=== PATIENT | male | born 1985 | race Two or more races ===

== ENCOUNTER 2020-01-30 02:05 | Emergency (ER) | payer SELFPAY ==
[~2020-01-30] VITALS: Ht 175.3 cm; Wt 68.0 kg
--- NOTE | 2020-01-30 02:11 | NUR ---
ED Nurse Note: Pt GRETA RA 28 [address] with [employer] present. PT is naked and standing in the street, pt appears to be on some substance. Pt is not answering questions, given 10mg Versed in the field.
--- NOTE | 2020-01-30 02:26 | Emergency Room Report ---
History of Present Illness General Chief Complaint: Behavioral Complaint Source: EMS, Law Enforcement (Jaxon Moran MD) Present Illness HPI Paramedics were called by [employer]. Apparently with the patient was running around naked in the street. He was babbling incoherently and fighting people trying to help him. Because of abnormal vital signs and his agitation paramedics gave the patient 10 mg of Versed IM. This led to his calming. The patient is unable to give coherent history at this time. He keeps on repeating in Japanese "the colors". 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 - [employer] family near Reviewed Nursing Documentation: PMH: Agreed; PSxH: Agreed (Jaxon Moran MD) Nursing Documentation-PMH Past Medical History Deferred: Patient Unconscious (Jaxon Moran MD) Review of Systems All Other Systems: limited (Jaxon Moran MD) Physical Exam Vital Signs Date Time Temp Pulse Resp B/P (MAP) Pulse Ox O2 Delivery O2 Flow Rate FiO2 01/30/20 02:03 98.1 126 18 116/89 (98) 97 Room Air Sp02 EP Interpretation: reviewed, normal General Appearance: well appearing, alert, non-toxic, other - slightly agitated Eyes: bilateral eye PERRL, bilateral eye EOMI, bilateral eye Scleral Injection ENT: moist mucus membranes Neck: full range of motion, supple Respiratory: chest non-tender, lungs clear, normal breath sounds Cardiovascular #1: no edema, tachycardia Cardiovascular #2: 2+ radial (L) Gastrointestinal: non tender, soft, decreased bowel sounds Genitourinary: normal inspection, other - uncircumcised Neurologic: alert Psychiatric: other - labile, not answer questions, perseveration talking about "colors" Skin: no rash, warm/dry (Jaxon Moran MD) Procedures Critical Care Time Critical Care Time Total Critical Care Time: 30 min bedside evaluation and treatment excludes procedures (EKG). Reason for critical care: psychosis/agitated delirium, restraints, repeat evaluations, sedation Possible complications: arrhythmias, metabolic acidosis, end organ damage, respiratory failure, harm to self and others. Interventions: restraints, sedation with multiple re-evaluations, hydration and treatment of renal dysfunction and tachycardia Course: Patient with bizarre behavior and agitated delirium. Initially sedated in field. Violent with staff and restraints and sedation indicated. Inadequate sedation. Repeat evaluations until improved mentation and cooperation. Renal failure and tachycardia treated with hydration. Repeat labs obtained. Signed out to Dr. Matamoros. Consultations: nursing staff, EMS, oncoming ERMD Performed by: Dr. Moran Tolerated well condition = serious but improved (Jaxon Moran MD) Medical Decision Making Medical: Substance Abuse Reaction to Intervention: No change Restraint Reassesment I, Jaxon Moran MD, have personally evaluated this patient. Laboratory tests have been reviewed and addressed accordingly. The patient is deemed to present a danger to themselves and/or others. This is based on the exam, history (provided by EMS and [employer]) and observed and reported behavior. Attempts for non-invasive measures have been considered and/or attempted, however, have been futile. It is in the best interest of the nursing staff, the patient, and others involved in this patient's care that behavioral restraints be applied. Patient evaluation reveals the following: see multiple re-evaluations leading to removal of restraints with adequate sedation (Jaxon Moran MD) Diagnostic Impression: Primary Impression: Acute psychosis Additional Impressions: Amphetamine abuse Renal failure Qualified Codes: N19 - Unspecified kidney failure Leukocytosis Qualified Codes: D72.828 - Other elevated white blood cell count ER Course Patient presents with suspected agitated delirium from the field after receiving 10 mg of Versed. Differential includes psychosis, substance abuse, electrolyte imbalance, exacerbation of underlying psychiatric disorder. Patient is tachycardic at this time and we need to exclude cardiac injury. Patient evaluated with EKG, chest x-ray and labs. Patient placed on cardiac monitor technician. Patient also given IV hydration. Patient agitated and attempting to get off the gurney and is unstable on his feet. He is fighting with staff. Several staff members needed to control the patient's behavior and restraints were indicated as he not responding to external stimuli or following requests and orders to lay back on the gurney and not try to injure us. Sedation and restraints indicated. 230 Patient trying to bite staff. Haldol repeated. 315 Labs significant for renal failure. CPK added. IV hydration continue. Potassium slightly low lactated Ringer's ordered Still shouting. Slightly more coherent. Haldol and ativan repeated. EKG finally performed. No longer tachycardic. He claims he is never had psychiatric diagnosis or medications. He refuses to say what drugs he has been using if any. Will repeat labs after LR and repeat eval. CK slightly elevated, but not in range for admission. Treated with LR and IV hydration. Signed out to Dr. Matamoros. Laboratory Tests Test 01/30/20 02:30 01/30/20 07:30 White Blood Count 16.2 K/UL (4.8-10.8) H 15.4 K/UL (4.8-10.8) H Red Blood Count 5.39 M/UL (4.70-6.10) 5.17 M/UL (4.70-6.10) Hemoglobin 16.4 G/DL (14.2-18.0) 15.8 G/DL (14.2-18.0) Hematocrit 50.0 % (42.0-52.0) 48.3 % (42.0-52.0) Mean Corpuscular Volume 93 FL (80-99) 93 FL (80-99) Mean Corpuscular Hemoglobin 30.3 PG (27.0-31.0) 30.5 PG (27.0-31.0) Mean Corpuscular Hemoglobin Concent 32.7 G/DL (32.0-36.0) 32.7 G/DL (32.0-36.0) Red Cell Distribution Width 12.6 % (11.6-14.8) 12.6 % (11.6-14.8) Platelet Count 337 K/UL (150-450) 304 K/UL (150-450) Mean Platelet Volume 7.1 FL (6.5-10.1) 7.2 FL (6.5-10.1) Neutrophils (%) (Auto) 81.3 % (45.0-75.0) H 78.2 % (45.0-75.0) H Lymphocytes (%) (Auto) 10.3 % (20.0-45.0) L 13.5 % (20.0-45.0) L Monocytes (%) (Auto) 7.6 % (1.0-10.0) 7.7 % (1.0-10.0) Eosinophils (%) (Auto) 0.1 % (0.0-3.0) 0.0 % (0.0-3.0) Basophils (%) (Auto) 0.7 % (0.0-2.0) 0.6 % (0.0-2.0) Urine Color Yellow Urine Appearance Clear Urine pH 5 (4.5-8.0) Urine Specific [place] 1.025 (1.005-1.035) Urine Protein 2+ (NEGATIVE) H Urine Glucose (UA) Negative (NEGATIVE) Urine Ketones 3+ (NEGATIVE) H Urine Blood 2+ (NEGATIVE) H Urine Nitrite Negative (NEGATIVE) Urine Bilirubin Negative (NEGATIVE) Urine Urobilinogen Normal MG/DL (0.0-1.0) Urine Leukocyte Esterase Negative (NEGATIVE) Urine RBC 2-4 /HPF (0 - 0) H Urine WBC 0 /HPF (0 - 0) Urine Squamous Epithelial Cells None /LPF (NONE/OCC) Urine Bacteria None /HPF (NONE) Sodium Level 143 MMOL/L (136-145) 141 MMOL/L (136-145) Potassium Level 3.4 MMOL/L (3.5-5.1) L 4.4 MMOL/L (3.5-5.1) Chloride Level 104 MMOL/L (98-107) 104 MMOL/L (98-107) Carbon Dioxide Level 25 MMOL/L (21-32) 31 MMOL/L (21-32) Anion Gap 14 mmol/L (5-15) 6 mmol/L (5-15) Blood Urea Nitrogen 29 mg/dL (7-18) H 29 mg/dL (7-18) H Creatinine 2.2 MG/DL (0.55-1.30) H 1.6 MG/DL (0.55-1.30) H Estimated Glomerular Filtration Rate 34.9 mL/min (>60) 50.3 mL/min (>60) Glucose Level 141 MG/DL (74-106) H 101 MG/DL (74-106) Calcium Level 9.8 MG/DL (8.5-10.1) 9.4 MG/DL (8.5-10.1) Total Bilirubin 0.9 MG/DL (0.2-1.0) 0.7 MG/DL (0.2-1.0) Aspartate Amino Transferase (AST) 39 U/L (15-37) H 51 U/L (15-37) H Alanine Aminotransferase (ALT) 38 U/L (12-78) 34 U/L (12-78) Alkaline Phosphatase 113 U/L (46-116) 107 U/L (46-116) Total Creatine Kinase 790 U/L (26-308) H Total Protein 8.8 G/DL (6.4-8.2) H 8.7 G/DL (6.4-8.2) H Albumin 4.4 G/DL (3.4-5.0) 4.2 G/DL (3.4-5.0) Globulin 4.4 g/dL 4.5 g/dL Albumin/Globulin Ratio 1.0 (1.0-2.7) 0.9 (1.0-2.7) L Salicylates Level 2.7 ug/mL (2.8-20) L Urine Opiates Screen Negative (NEGATIVE) Acetaminophen Level < 2 MCG/ML (10-30) L Urine Barbiturates Screen Negative (NEGATIVE) Phencyclidine (PCP) Screen Negative (NEGATIVE) Urine Amphetamines Screen Positive (NEGATIVE) H Urine Benzodiazepines Screen Positive (NEGATIVE) H Urine Cocaine Screen Negative (NEGATIVE) Urine Marijuana (THC) Screen Positive (NEGATIVE) H Serum Alcohol < 3 mg/dL (Jaxon Moran MD) ER Course Assumed care of the patient from the previous provider at approximately 0600. Please refer to initial note for full history and physical exam. Briefly, 34-year-old male brought in by [employer] and paramedics for evaluation of bizarre behavior. Found to be under the influence of amphetamines. He received sedation is now resting comfortably with stable vital signs. Restraints have been removed. Labs show signs of acute kidney injury and receiving IV fluids. Renal function improved. He is stable for outpatient follow-up. Encouraged to drink water and have the kidney function rechecked next week. Resources on drug abuse provided. Laboratory Tests Test 01/30/20 02:30 01/30/20 07:30 White Blood Count 16.2 K/UL (4.8-10.8) H 15.4 K/UL (4.8-10.8) H Red Blood Count 5.39 M/UL (4.70-6.10) 5.17 M/UL (4.70-6.10) Hemoglobin 16.4 G/DL (14.2-18.0) 15.8 G/DL (14.2-18.0) Hematocrit 50.0 % (42.0-52.0) 48.3 % (42.0-52.0) Mean Corpuscular Volume 93 FL (80-99) 93 FL (80-99) Mean Corpuscular Hemoglobin 30.3 PG (27.0-31.0) 30.5 PG (27.0-31.0) Mean Corpuscular Hemoglobin Concent 32.7 G/DL (32.0-36.0) 32.7 G/DL (32.0-36.0) Red Cell Distribution Width 12.6 % (11.6-14.8) 12.6 % (11.6-14.8) Platelet Count 337 K/UL (150-450) 304 K/UL (150-450) Mean Platelet Volume 7.1 FL (6.5-10.1) 7.2 FL (6.5-10.1) Neutrophils (%) (Auto) 81.3 % (45.0-75.0) H 78.2 % (45.0-75.0) H Lymphocytes (%) (Auto) 10.3 % (20.0-45.0) L 13.5 % (20.0-45.0) L Monocytes (%) (Auto) 7.6 % (1.0-10.0) 7.7 % (1.0-10.0) Eosinophils (%) (Auto) 0.1 % (0.0-3.0) 0.0 % (0.0-3.0) Basophils (%) (Auto) 0.7 % (0.0-2.0) 0.6 % (0.0-2.0) Urine Color Yellow Urine Appearance Clear Urine pH 5 (4.5-8.0) Urine Specific [place] 1.025 (1.005-1.035) Urine Protein 2+ (NEGATIVE) H Urine Glucose (UA) Negative (NEGATIVE) Urine Ketones 3+ (NEGATIVE) H Urine Blood 2+ (NEGATIVE) H Urine Nitrite Negative (NEGATIVE) Urine Bilirubin Negative (NEGATIVE) Urine Urobilinogen Normal MG/DL (0.0-1.0) Urine Leukocyte Esterase Negative (NEGATIVE) Urine RBC 2-4 /HPF (0 - 0) H Urine WBC 0 /HPF (0 - 0) Urine Squamous Epithelial Cells None /LPF (NONE/OCC) Urine Bacteria None /HPF (NONE) Sodium Level 143 MMOL/L (136-145) 141 MMOL/L (136-145) Potassium Level 3.4 MMOL/L (3.5-5.1) L 4.4 MMOL/L (3.5-5.1) Chloride Level 104 MMOL/L (98-107) 104 MMOL/L (98-107) Carbon Dioxide Level 25 MMOL/L (21-32) 31 MMOL/L (21-32) Anion Gap 14 mmol/L (5-15) 6 mmol/L (5-15) Blood Urea Nitrogen 29 mg/dL (7-18) H 29 mg/dL (7-18) H Creatinine 2.2 MG/DL (0.55-1.30) H 1.6 MG/DL (0.55-1.30) H Estimated Glomerular Filtration Rate 34.9 mL/min (>60) 50.3 mL/min (>60) Glucose Level 141 MG/DL (74-106) H 101 MG/DL (74-106) Calcium Level 9.8 MG/DL (8.5-10.1) 9.4 MG/DL (8.5-10.1) Total Bilirubin 0.9 MG/DL (0.2-1.0) 0.7 MG/DL (0.2-1.0) Aspartate Amino Transferase (AST) 39 U/L (15-37) H 51 U/L (15-37) H Alanine Aminotransferase (ALT) 38 U/L (12-78) 34 U/L (12-78) Alkaline Phosphatase 113 U/L (46-116) 107 U/L (46-116) Total Creatine Kinase 790 U/L (26-308) H Total Protein 8.8 G/DL (6.4-8.2) H 8.7 G/DL (6.4-8.2) H Albumin 4.4 G/DL (3.4-5.0) 4.2 G/DL (3.4-5.0) Globulin 4.4 g/dL 4.5 g/dL Albumin/Globulin Ratio 1.0 (1.0-2.7) 0.9 (1.0-2.7) L Salicylates Level 2.7 ug/mL (2.8-20) L Urine Opiates Screen Negative (NEGATIVE) Acetaminophen Level < 2 MCG/ML (10-30) L Urine Barbiturates Screen Negative (NEGATIVE) Phencyclidine (PCP) Screen Negative (NEGATIVE) Urine Amphetamines Screen Positive (NEGATIVE) H Urine Benzodiazepines Screen Positive (NEGATIVE) H Urine Cocaine Screen Negative (NEGATIVE) Urine Marijuana (THC) Screen Positive (NEGATIVE) H Serum Alcohol < 3 mg/dL (Nasim Matamoros MD) EKG Diagnostic Results Rate: normal Rhythm: NSR ST Segments: no acute changes (Jaxon Moran MD) Rhythm Strip Diag. Results EP Interpretation: yes Rhythm: NSR, no PVC's, no ectopy (Jaxon Moran MD) Chest X-Ray Diagnostic Results Chest X-Ray Diagnostic Results : Chest X-Ray Ordered: Yes # of Views/Limited/Complete: 1 View Indication: Other EP Interpretation: Yes Interpretation: no consolidation, no effusion, no pneumothorax Impression: No acute disease Electronically Signed by: Electronically signed by Jaxon Moran MD (Jaxon Moran MD) Last Vital Signs Date Time Temp Pulse Resp B/P (MAP) Pulse Ox O2 Delivery O2 Flow Rate FiO2 01/30/20 05:20 90 18 98 Room Air 01/30/20 04:49 121/85 01/30/20 02:35 98.1 Status: improved (Jaxon Moran MD) Disposition: HOME, SELF-CARE Condition: Stable Jaxon Moran MD Jan 30, 2020 02:26 Nasim Matamoros MD Jan 30, 2020 06:13
[2020-01-30] MEDS ORDERED: DiphenhydrAMINE 50mg/ml Inj IM ONE (02:30)
[2020-01-30] MEDS ORDERED: Haloperidol 5mg/ml Inj IM ONE ×3 (02:30→04:15)
[2020-01-30 02:35] VITALS: BP 116/89
[2020-01-30 02:37] LABS: BASOPHILS % (AUTO) 0.7 % (0.0-2.0); EOSINOPHILS % (AUTO) 0.1 % (0.0-3.0); HEMOGLOBIN 16.4 G/DL (14.2-18.0); LYMPHOCYTES % (AUTO) 10.3 % (20.0-45.0); MEAN CORPUSCULAR VOLUME 93 FL (80-99); MONOCYTES % (AUTO) 7.6 % (1.0-10.0); NEUTROPHILS % (AUTO) 81.3 % (45.0-75.0); PLATELET COUNT 337 K/UL (150-450); RED BLOOD COUNT 5.39 M/UL (4.70-6.10); RED CELL DISTRIBUTION WIDTH 12.6 % (11.6-14.8); WHITE BLOOD COUNT 16.2 K/UL (4.8-10.8)
[2020-01-30 02:52] LABS: ANION GAP 14 mmol/L (5-15); BLOOD UREA NITROGEN 29 mg/dL (7-18); CALCIUM 9.8 MG/DL (8.5-10.1); CARBON DIOXIDE 25 MMOL/L (21-32); CHLORIDE 104 MMOL/L (98-107); CREATININE 2.2 MG/DL (0.55-1.30); POTASSIUM 3.4 MMOL/L (3.5-5.1); SODIUM 143 MMOL/L (136-145)
[2020-01-30 02:55] LABS: ALANINE AMINOTRANSFERASE 38 U/L (12-78); ALBUMIN 4.4 G/DL (3.4-5.0); ALKALINE PHOSPHATASE 113 U/L (46-116); ASPARTATE AMINO TRANSFERASE 39 U/L (15-37); BILIRUBIN,TOTAL 0.9 MG/DL (0.2-1.0)
[2020-01-30] MEDS ORDERED: LORazepam Inj 2mg/ml 1ml IV ONE (04:15)
[2020-01-30 05:02] LABS: APPEARANCE,URINE CLEAR; BILIRUBIN, URINE NEGATIVE (NEGATIVE); GLUCOSE, URINE (UA) NEGATIVE (NEGATIVE); KETONES,URINE 3+ (NEGATIVE); LEUKOCYTE ESTERASE ,URINE NEGATIVE (NEGATIVE); NITRITE,URINE NEGATIVE (NEGATIVE); PH,URINE 5 (4.5-8.0); PROTEIN,URINE 2+ (NEGATIVE); UROBILINOGEN,URINE NORMAL MG/DL (0.0-1.0)
[2020-01-30 05:08] LABS: COLOR,URINE YELLOW
[2020-01-30 05:10] LABS: CREATINE KINASE 790 U/L (26-308)
[2020-01-30] MEDS: LR 1000ml 1,000 ML IV SCH ×2 (05:21→08:08)
--- NOTE | 2020-01-30 05:30 | NUR ---
ED Nurse Note: Pt with eyes closed non-labored breathing, no signs of distress. Restraints Dc'd per MD order, will continue to monitor
--- NOTE | 2020-01-30 07:10 | NUR ---
ED Nurse Note: Received report from Shannan ARIAS. Pt seen sleeping in bed. Breathing even and unlabored. IV fluids running. Will cont to monitor.
--- NOTE | 2020-01-30 07:30 | NUR ---
ED Nurse Note: Repeat CBC/ CMP sent to lab.
[2020-01-30 07:36] LABS: BASOPHILS % (AUTO) 0.6 % (0.0-2.0); HEMATOCRIT 48.3 % (42.0-52.0); HEMOGLOBIN 15.8 G/DL (14.2-18.0); LYMPHOCYTES % (AUTO) 13.5 % (20.0-45.0); MEAN CORPUSCULAR VOLUME 93 FL (80-99); MONOCYTES % (AUTO) 7.7 % (1.0-10.0); NEUTROPHILS % (AUTO) 78.2 % (45.0-75.0); PLATELET COUNT 304 K/UL (150-450); RED BLOOD COUNT 5.17 M/UL (4.70-6.10); RED CELL DISTRIBUTION WIDTH 12.6 % (11.6-14.8); WHITE BLOOD COUNT 15.4 K/UL (4.8-10.8)
[2020-01-30 07:47] LABS: CALCIUM 9.4 MG/DL (8.5-10.1); CREATININE 1.6 MG/DL (0.55-1.30); POTASSIUM 4.4 MMOL/L (3.5-5.1)
[2020-01-30 07:52] LABS: ALBUMIN 4.2 G/DL (3.4-5.0); ALBUMIN/GLOBULIN RATIO 0.9 (1.0-2.7); BILIRUBIN,TOTAL 0.7 MG/DL (0.2-1.0)
[2020-01-30 09:02] VITALS: BP 135/71
--- NOTE | 2020-01-30 09:02 | NUR ---
ED Nurse Note: Pt cleared by ERMD for discharge. DC instructions was given and explained to pt and verbalized understanding of teachings. All medical deviecs such as ID band and IV line removed. Pt is AAO x4, ambulatory and left with all personal belongings.
--- NOTE | 2020-01-30 15:01 | Diagnostic Imaging Report ---
Indication: Shortness of breath Technique: XRAY Chest 1v Comparison: None Findings: Limited exam with low lung volumes. Patient's chin also obscures portions of the apices and essential pathology in these regions not excluded. Heart appears within normal for size. There is no definite focal versus consolidation. No pleural effusion or pneumothorax. No appreciable acute osseous abnormality. Impression: Limited exam as above. No definite radiographic evidence of acute cardiopulmonary disease. Repeat exam with improved patient positioning can be obtained for more sensitive evaluation as clinically indicated.
--- NOTE | 2020-01-30 16:09 | Cardiology Report ---
APPROVED REPORT EKG Measurement Heart [id number] <Conclusion> Normal sinus rhythm Normal ECG
== END 2020-01-30 09:02 | disposition home or self-care (01) ==
LOC: EDBD 02:05 → EMR 03:16
DX: F23 Brief psychotic disorder (principal); F15.10 Other stimulant abuse, uncomplicated; N19 Unspecified kidney failure; D72.828 Other elevated white blood cell count; Z72.89 Other problems related to lifestyle
CPT/HCPCS: 36415; 71045; 80053; 80307; 81003; 82550; 85025; 93005; 96372; 96374; 99291; G0480; J1200; J1630; J7120